=== PATIENT | male | born 1955 | race Caucasian/White ===

== ENCOUNTER 2019-07-05 19:23 | Observation (INO) | payer MEDICARE, MEDICAID ==
[~2019-07-05] VITALS: Ht 172.7 cm; Wt 48.0 kg
[~2019-07-05 19:23] MED LIST: AMOX1TAB64 PO; METO5TAB57 PO; PANT40TA3 PO
--- NOTE | 2019-07-05 19:38 | NUR ---
pt states [place] tube placed 3 weeks ago in [place].
[2019-07-05] MEDS ORDERED: SODIUM CHLORIDE 0.9% 1,000 ML IV ONE (20:06)
--- NOTE | 2019-07-05 20:28 | NUR ---
pt's mehrdad on telephone, notified that she is on her way here from [place], phone number [phone]
[2019-07-05] MEDS ORDERED: SODIUM CHLORIDE FLUSH 10ML SYR IVF ONE (20:30)
[2019-07-05 21:22] LABS: BASOPHILS # (AUTO) 0.03 x10^3/uL (0-0.1); BASOPHILS % (AUTO) 1 % (0-1); EOSINOPHILS # (AUTO) 0.25 x10^3/uL (0-0.4); EOSINOPHILS % (AUTO) 4 % (1-7); LYMPHOCYTES # (AUTO) 1.53 x10^3/uL (1-3.4); LYMPHOCYTES % (AUTO) 21 % (22-44); MD NO; MEAN CORPUSCULAR HEMOGLOBIN 27.9 pg (27.5-34.5); MEAN CORPUSCULAR VOLUME 87.2 fL (81-97); MEAN PLATELET VOLUME 11.2 fL (7.4-10.4); MONOCYTES % (AUTO) 8 % (2-9); NEUTROPHILS # (AUTO) 4.87 x10^3/uL (1.8-6.8); NEUTROPHILS % (AUTO) 67 % (42-75); PLATELET COUNT 206 x10^3/uL (130-400); RED BLOOD COUNT 3.97 x10^6/uL (4.38-5.82); RED CELL DISTRIBUTION WIDTH 16.9 % (9.4-14.8)
[2019-07-05 21:25] LABS: ALBUMIN 2.9 g/dL (3.4-5.0); ANION GAP 5 mmol/L (5-15); CALCIUM 8.6 mg/dL (8.5-10.1); CHLORIDE 103 mmol/L (98-107); CREATININE 0.58 mg/dL (0.7-1.3)
--- NOTE | 2019-07-05 21:45 | NUR ---
Pt requested assistance with urinating, provided urinal however was unable to void at this time.
[2019-07-05] MEDS ORDERED: PHOS250T PO/NG (22:33)
[2019-07-05] MEDS ORDERED: FOLI-17 PO/NG (22:33)
[2019-07-05] MEDS ORDERED: POLY17PO5 NG (22:33)
[2019-07-05] MEDS ORDERED: THIA100T27 PO/NG (22:33)
[2019-07-05] MEDS ORDERED: PANT40TA5 NPPB (22:33)
[2019-07-05] MEDS ORDERED: OXCA300T3 NG (22:33)
[2019-07-05] MEDS ORDERED: CITA10SO NG (22:33)
[2019-07-05] MEDS ORDERED: HALO50AM4 NG (22:33)
--- NOTE | 2019-07-05 22:45 | NUR ---
Report given to Dee Dee SEGOVIA.
[2019-07-05 23:10] VITALS: BP 152/80
[2019-07-06] VITALS: BP 152/80
[2019-07-06] MEDS ORDERED: ONDANSETRON 2MG/ML, 2ML IVPush PRN (02:00)
[2019-07-06] MEDS ORDERED: PROMETHAZINE 25 MG/ML, 1ML IM PRN (02:00)
[2019-07-06] MEDS ORDERED: hydrALAzine 20 MG/ML, 1ML IVPush PRN (02:00)
[2019-07-06 02:37] LABS: FREE T4 (FREE THYROXINE) 0.84 ng/dL (0.76-1.46)
[2019-07-06] MEDS: D5%-0.9% NACL 1,000 ML IV SCH ×2 (03:00→13:57)
[2019-07-06] MEDS ORDERED: HALO5AMP2 NG (06:13)
[2019-07-06] MEDS ORDERED: HALO5AMP3 NG (06:17)
[2019-07-06] MEDS ORDERED: CA C1TAB62 NG (06:18)
[2019-07-06 07:27] VITALS: BP 150/78
[2019-07-06] MEDS: ENOXAPARIN 40 MG/0.4 ML SQ SCH (07:43)
[2019-07-06] MEDS ORDERED: HALOPERIDOL 5 MG/ML IM PRN (11:00)
[2019-07-06] MEDS: PANTOPRAZOLE 40 MG IV IVPush SCH (11:24)
[2019-07-06] MEDS: LORazepam 2 MG/ML, 1ML IVPush PRN (11:24)
[2019-07-06] MEDS ORDERED: LIDOCAINE GEL 2%, 5ML ONE (11:46)
[2019-07-06] MEDS ORDERED: BENZOCAINE 20% SPRAY 0.5ML ONE (11:46)
[2019-07-06 13:18] VITALS: BP 130/77
[2019-07-06] MEDS: MORPHINE SULFATE 4 MG/ML, 1ML IVPush PRN ×2 (16:00→20:19)
[2019-07-06] MEDS ORDERED: VISIPAQUE 270 MG/ML, 50ML BOTTLE ONE (18:39)
[2019-07-06 18:57] VITALS: BP 142/68
[2019-07-07 00:17] VITALS: BP 129/69
[2019-07-07 05:09] LABS: BASOPHILS # (AUTO) 0.05 x10^3/uL (0-0.1); BASOPHILS % (AUTO) 1 % (0-1); EOSINOPHILS # (AUTO) 0.26 x10^3/uL (0-0.4); EOSINOPHILS % (AUTO) 4 % (1-7); LYMPHOCYTES # (AUTO) 1.59 x10^3/uL (1-3.4); LYMPHOCYTES % (AUTO) 23 % (22-44); MD NO; MEAN CORPUSCULAR HEMOGLOBIN 28.3 pg (27.5-34.5); MEAN CORPUSCULAR HGB CONC 32.2 g/dL (33.2-36.2); MEAN CORPUSCULAR VOLUME 87.9 fL (81-97); MEAN PLATELET VOLUME 11.6 fL (7.4-10.4); MONOCYTES % (AUTO) 9 % (2-9); NEUTROPHILS # (AUTO) 4.28 x10^3/uL (1.8-6.8); NEUTROPHILS % (AUTO) 63 % (42-75); PLATELET COUNT 224 x10^3/uL (130-400); RED BLOOD COUNT 4.02 x10^6/uL (4.38-5.82); RED CELL DISTRIBUTION WIDTH 16.8 % (9.4-14.8)
[2019-07-07 05:19] LABS: ALBUMIN 2.8 g/dL (3.4-5.0); ANION GAP 7 mmol/L (5-15); CALCIUM 8.6 mg/dL (8.5-10.1); CHLORIDE 103 mmol/L (98-107)
[2019-07-07 05:23] LABS: ALANINE AMINOTRANSFERASE 36 U/L (12-78); ALKALINE PHOSPHATASE 116 U/L (45-117); BILIRUBIN,TOTAL 0.4 mg/dL (0.2-1.0); CHOL/HDL RATIO 3.2; CHOLESTEROL, TOTAL 145 mg/dL (140-239); CREATININE 0.66 mg/dL (0.7-1.3); HDL CHOL % 31 % (26-37); HDL CHOLESTEROL (DIRECT) 45 mg/dL (40-60); LDL CHOLESTEROL,CALCULATED 85 mg/dL (54-169); LDL/HDL RATIO 1.9 (0.5-3.0); TOTAL PROTEIN 7.3 g/dL (6.4-8.2); TRIGLYCERIDES 77 mg/dL (50-200); VLDL CHOLESTEROL 15 mg/dL (0-25)
[2019-07-07 07:27] VITALS: BP 122/69
[2019-07-07] MEDS: PANTOPRAZOLE 40 MG IV IVPush SCH (09:56)
[2019-07-07] MEDS: ENOXAPARIN 40 MG/0.4 ML SQ SCH (09:56)
[2019-07-07 13:55] VITALS: BP 111/75
[2019-07-07] MEDS: D5%-0.45% NACL 1,000 ML IV SCH (17:15)
[2019-07-07 19:35] VITALS: BP 181/102
[2019-07-07 20:53] VITALS: BP 119/76
[2019-07-08 01:13] VITALS: BP 115/59
[2019-07-08 02:30] VITALS: BP 120/67
[2019-07-08] MEDS: D5%-0.45% NACL 1,000 ML IV SCH ×2 (03:08→15:28)
[2019-07-08 05:16] LABS: CHLORIDE 102 mmol/L (98-107)
[2019-07-08 05:23] LABS: ANION GAP 6 mmol/L (5-15); CALCIUM 8.5 mg/dL (8.5-10.1); CREATININE 0.72 mg/dL (0.7-1.3)
[2019-07-08] MEDS: ENOXAPARIN 40 MG/0.4 ML SQ SCH (06:24)
[2019-07-08] MEDS: PANTOPRAZOLE 40 MG IV IVPush SCH (07:43)
[2019-07-08 07:54] VITALS: BP 106/57
[2019-07-08] MEDS ORDERED: MIDAZOLAM 1 MG/ML, 2ML ONE (07:59)
[2019-07-08] MEDS ORDERED: FENTANYL PF 100 MCG/2ML ONE (07:59)
[2019-07-08] MEDS ORDERED: PROPOFOL 50 ML ONE (08:01)
[2019-07-08 13:09] VITALS: BP 99/62
[2019-07-08] MEDS: LORazepam 2 MG/ML, 1ML IVPush PRN (13:13)
== END 2019-07-08 17:21 | disposition home or self-care (01) ==
LOC: ED 19:57 → INTOOBSV 21:58 → EDIP 21:58 → 3N 23:09
PROVIDERS: ADMIT Internal Medicine; ATTEND Internal Medicine
DX: K94.23 Gastrostomy malfunction (principal); G80.8 Other cerebral palsy; G80.9 Cerebral palsy, unspecified; K21.0 Gastro-esophageal reflux disease with esophagitis; K22.70 Barrett's esophagus without dysplasia; K31.84 Gastroparesis; K44.9 Diaphragmatic hernia without obstruction or gangrene; G43.909 Migraine, unspecified, not intractable, without status migrainosus; G40.909 Epilepsy, unspecified, not intractable, without status epilepticus; R53.81 Other malaise; Z79.899 Other long term (current) drug therapy
CPT/HCPCS: 36415; 43241; 49465; 74340; 80048; 80053; 80061; 82040; 83036; 83735; 84100; 84439; 84443; 85025; 96372; 96374; 96375; 96376; 97116; 97162; 97166; 97530; 97535; 99284; C1769; C9113; G0378; J1650; J2060; J2250; J2270; J2704; J3010; J7030; J7042; Q9966

== ENCOUNTER 2019-07-18 13:55 | Emergency (ER) | payer MEDICARE, MEDICAID ==
[~2019-07-18] VITALS: Ht 170.2 cm; Wt 44.6 kg
[~2019-07-18 13:55] MED LIST changes: +CA C1TAB62 NG; +CITA10SO NG; +FOLI-17 PO/NG; +HALO50AM4 NG; +HALO5AMP2 NG; +HALO5AMP3 NG; +OXCA300T3 NG; +PANT40TA5 NPPB; +PHOS250T PO/NG; +POLY17PO5 NG; +THIA100T27 PO/NG
--- NOTE | 2019-07-18 15:06 | NUR ---
PT WITH [facility]. HAS BEEN IN PLACE FOR APPROXIMATELY 2 WEEKS. THIS AM PTS STRAPPING MACHINE TENDER DISCOVERED THAT IT WAS CLOGGED. AFTER MULTIPLE ATTEMPTS TO CLEAR THE TUBE, STRAPPING MACHINE TENDER WAS UNABLE TO CLEAR
[2019-07-18 15:22] LABS: BASOPHILS # (AUTO) 0.05 x10^3/uL (0-0.1); BASOPHILS % (AUTO) 1 % (0-1); EOSINOPHILS # (AUTO) 0.07 x10^3/uL (0-0.4); EOSINOPHILS % (AUTO) 1 % (1-7); LYMPHOCYTES # (AUTO) 0.93 x10^3/uL (1-3.4); LYMPHOCYTES % (AUTO) 9 % (22-44); MD NO; MEAN CORPUSCULAR HEMOGLOBIN 28.4 pg (27.5-34.5); MEAN CORPUSCULAR HGB CONC 32.3 g/dL (33.2-36.2); MEAN PLATELET VOLUME 10.4 fL (7.4-10.4); MONOCYTES # (AUTO) 0.69 x10^3/uL (0.2-0.8); MONOCYTES % (AUTO) 7 % (2-9); NEUTROPHILS # (AUTO) 8.13 x10^3/uL (1.8-6.8); NEUTROPHILS % (AUTO) 82 % (42-75); PLATELET COUNT 274 x10^3/uL (130-400); RED BLOOD COUNT 4.13 x10^6/uL (4.38-5.82); RED CELL DISTRIBUTION WIDTH 17.2 % (9.4-14.8)
[2019-07-18 15:33] LABS: ANION GAP 5 mmol/L (5-15); CALCIUM 9.3 mg/dL (8.5-10.1); CHLORIDE 103 mmol/L (98-107); CREATININE 0.78 mg/dL (0.7-1.3)
[2019-07-18] MEDS ORDERED: SODIUM CHLORIDE 0.9% 1,000ML IVBOLUS ONE (16:00)
[2019-07-18 17:12] VITALS: BP 115/66
--- NOTE | 2019-07-18 17:26 | NUR ---
PT TO BE DISCHARGED, PENDING BOLUS COMPLETION
[2019-07-19] MEDS ORDERED: CITA10TA8 NG (13:04)
[2019-07-19] MEDS ORDERED: SUCR1ORA5 NG (13:04)
[2019-07-19] MEDS ORDERED: OMEP-110 NG (13:04)
== END 2019-07-18 18:50 | disposition home or self-care (01) ==
LOC: ED 16:10
DX: K94.23 Gastrostomy malfunction (principal); R05 Cough; K21.9 Gastro-esophageal reflux disease without esophagitis; G40.909 Epilepsy, unspecified, not intractable, without status epilepticus
CPT/HCPCS: 36415; 71045; 80048; 85025; 99284; J7030

== ENCOUNTER 2019-07-19 12:17 | Day surgery (SDC) | payer MEDICARE, MEDICAID ==
[~2019-07-19] VITALS: Ht 170.2 cm; Wt 44.5 kg
[2019-07-19] MEDS ORDERED: CITA10TA8 NG (13:04)
[2019-07-19] MEDS ORDERED: SUCR1ORA5 NG (13:04)
[2019-07-19] MEDS ORDERED: OMEP-110 NG (13:04)
[2019-07-19 13:05] VITALS: BP 128/76
[2019-07-19] MEDS ORDERED: PROPOFOL 10 MG/ML, 20ML ONE ×2 (13:57)
== END 2019-07-19 16:25 | disposition home or self-care (01) ==
LOC: OUT 12:17
PROVIDERS: ATTEND Internal Medicine Gastroenterology
DX: K94.23 Gastrostomy malfunction (principal); K44.9 Diaphragmatic hernia without obstruction or gangrene; K21.9 Gastro-esophageal reflux disease without esophagitis; R63.3 Feeding difficulties; G80.9 Cerebral palsy, unspecified; R56.9 Unspecified convulsions; Y83.8 Other surgical procedures as the cause of abnormal reaction of the patient, or of later complication, without mention of misadventure at the time of the procedure
CPT/HCPCS: 43241; 93005; J2704